=== PATIENT | male | born 1970 | race Hispanic/Latino ===

== ENCOUNTER 2021-08-19 09:33 | Emergency (ER) | payer OTHER ==
[~2021-08-19] VITALS: Ht 175.3 cm; Wt 83.9 kg
== END 2021-08-19 10:06 | disposition home or self-care (01) ==
LOC: ER 09:40
DX: R05 Cough (principal); U07.1 COVID-19; R53.83 Other fatigue
CPT/HCPCS: 99282

== ENCOUNTER 2021-10-31 12:37 | Emergency (ER) | payer SELFPAY ==
[~2021-10-31] VITALS: Ht 172.7 cm; Wt 81.6 kg
[2021-10-31] MEDS ORDERED: ALBUTEROL/IPRATROPIUM 3 ML NEB NEB ONE ×2 (13:00→14:00)
[2021-10-31 13:08] LABS: BASOPHILS # (AUTO) 0.1 (0.0-0.1); BASOPHILS % 1.1 % (0.0-1.0); EOSINOPHILS # (AUTO) 0.3 (0.0-0.4); EOSINOPHILS % 3.5 % (0.0-6.0); HEMATOCRIT 49.9 % (38.2-49.6); HEMOGLOBIN 16.4 g/dL (14.0-18.0); LYMPHOCYTES % 25.2 % (18.0-39.1); MEAN CORPUSCULAR HEMOGLOBIN 32.9 pg (28-32); MEAN CORPUSCULAR HGB CONC 32.9 g/dL (31-35); MEAN CORPUSCULAR VOLUME 100.2 fL (81-99); MONOCYTES # (AUTO) 0.9 (0.2-0.8); MONOCYTES % 11.4 % (4.4-11.3); NEUTROPHILS # (AUTO) 4.6 (2.1-6.9); NEUTROPHILS % 58.4 % (38.7-80.0); PLATELET COUNT 210 x10e3/uL (140-360); RED BLOOD COUNT 4.98 x10e6/uL (4.3-5.7); RED CELL DISTRIBUTION WIDTH 12.7 % (11.7-14.4)
[2021-10-31 13:27] LABS: POTASSIUM 4.3 mmol/L (3.5-5.1)
[2021-10-31 13:28] LABS: ALBUMIN 3.9 g/dL (3.5-5.0); ALBUMIN/GLOBULIN RATIO 1.3 (0.8-2.0); ANION GAP 14.3 mmol/L (8-16); CALCIUM 8.4 mg/dL (8.4-10.2); CREATININE, SERUM 0.97 mg/dL (0.72-1.25)
[2021-10-31] MEDS ORDERED: DEXAMETHASONE 4 MG TAB PO ONE (13:30)
[2021-10-31] MEDS ORDERED: PROVENTIL HFA6.7 GM INH (14:55)
[2021-10-31 15:30] VITALS: BP 165/98
== END 2021-10-31 15:38 | disposition home or self-care (01) ==
LOC: ER 12:47
DX: R06.02 Shortness of breath (principal); J45.909 Unspecified asthma, uncomplicated; R05.9 Cough, unspecified; Z20.822 Contact with and (suspected) exposure to COVID-19
CPT/HCPCS: 36415; 71045; 80053; 83880; 84484; 85025; 93005; 99284; U0002